=== PATIENT | male | born 1995 | race Caucasian/White ===

== ENCOUNTER 2017-05-25 18:41 | Emergency (ER) | payer OTHER ==
[2017-05-25] MEDS ORDERED: diPHENhydraMINE PO* 25 MG PO ONE (19:15)
[2017-05-25 20:26] VITALS: BP 128/50
--- NOTE | 2017-05-25 20:30 | ED ---
Joy Desir Thomas, scribed for Isidro Donohue MD on 05/25/17 at 1953 . Allergic Reaction/Systemic - HPI Summary HPI Summary: The patient is a 22 y/o M BIBA with concerns that he was suffering an allergic reaction s/p accidentally eating food with peanut oil today at 18:00. He has a small amount of hives to his bilateral hands. He denies any SOB, hoarseness, throat tightening, difficulty breathing, wheezing, and any pain. After the sting , he did not take either Benadryl or EpiPen. He was not given either by EMS. He has not consumed peanuts since he was 4 years old and thus he was concerned that he would go into anaphylaxis. In the examination room, he speculates that he may have overreacted. - History of Current Complaint Chief Complaint: EDAllergicReaction Time Seen by Provider: 05/25/17 18:56 Hx Obtained From: Patient Onset/Duration: Sudden Onset - peanut oil injection at 18:00, Still Present Timing: Constant Severity Currently: Mild Pain Intensity: 0 Pain Scale Used: 0-10 Numeric Aggravating Factor(s): Nothing Alleviating Factor(s): Nothing Associated Signs And Symptoms: Negative: Difficulty Breathing, Hoarseness, Throat Tightening, Other: - NEG: SOB - Related Hx Possible Reaction To: Food - peanut allergy ingestion - Allergies/Home Medications Allergies/Adverse Reactions: Allergies Allergy/AdvReac Type Severity Reaction Status Date / Time Peanut-containing Drug Allergy Unknown Verified 05/25/17 18:51 Products Reaction Details Tree Nuts Allergy Unknown Verified 05/25/17 18:51 Reaction Details PMH/Surg Hx/FS Hx/Imm Hx Previously Healthy: No Endocrine/Hematology History: Reports: Other Endocrine/Hematological Disorders - Peanut allergy Cardiovascular History: Denies: Hx Myocardial Infarction Respiratory History: Denies: Hx Chronic Obstructive Pulmonary Disease (COPD) - Surgical History Surgery Procedure, Year, and Place: None Infectious Disease History: No Infectious Disease History: Denies: Traveled Outside the [place] in Last 30 Days - Family History Known Family History: Negative: Other - NEG: peanut allergy - Social History Alcohol Use: Weekly Substance Use Type: Reports: None Smoking Status (MU): Never Smoked Tobacco Review of Systems Negative: Fever Negative: Other - NEG: hoarseess, throat tightening Negative: Shortness Of Breath, Other - NEG: diffulty breathing, wheezing Negative: Other - NEG: any pain Positive: Other - POS: small amount of hives to bilateral arms All Other Systems Reviewed And Are Negative: Yes Physical Exam Triage Information Reviewed: Yes Vital Signs On Initial Exam: Initial Vitals Temp Pulse Resp BP Pulse Ox 97.3 F 96 16 141/67 96 05/25/17 18:42 05/25/17 18:42 05/25/17 18:42 05/25/17 18:42 05/25/17 18:42 Vital Signs Reviewed: Yes Appearance: Positive: Well-Appearing, No Pain Distress, Well-Nourished Skin: Positive: Warm, Skin Color Reflects Adequate Perfusion, Dry Head/Face: Positive: Normal Head/Face Inspection Eyes: Positive: Normal ENT: Positive: Normal ENT inspection Neck: Positive: Supple, Nontender Respiratory/Lung Sounds: Positive: Clear to Auscultation, Breath Sounds Present Cardiovascular: Positive: RRR Abdomen Description: Positive: Nontender, Soft Bowel Sounds: Positive: Present Musculoskeletal: Positive: Normal Neurological: Positive: Normal Psychiatric: Positive: Normal, Affect/Mood Appropriate Diagnostics - Vital Signs Vital Signs Temp Pulse Resp BP Pulse Ox 05/25/17 19:00 83 97 05/25/17 18:49 91 96 05/25/17 18:46 141/67 05/25/17 18:42 97.3 F 96 16 141/67 96 - Laboratory Lab Statement: Any lab studies that have been ordered have been reviewed, and results considered in the medical decision making process. Allergic Reaction Course/Dx - Course Course Of Treatment: Mr. Yung presented with a mild allergic reaction involving his hands only. He improved with PO benadryl and he has an epipen at home. - Diagnoses Provider Diagnoses: Allergic reaction Discharge - Discharge Plan Condition: Stable Disposition: HOME Patient Education Materials: Food Allergy (ED), General Allergic Reaction (ED) Referrals: Non Staff,Doctor [Primary Care Provider] - Additional Instructions: Continue to keep your EpiPen in case of future accidental ingestions. The documentation as recorded by the Joy rosas Thomas accurately reflects the service I personally performed and the decisions made by , Isidro Donohue MD.
== END 2017-05-25 20:28 | disposition home or self-care (01) ==
LOC: ED 18:41
DX: T78.40XA Allergy, unspecified, initial encounter (principal); X58.XXXA Exposure to other specified factors, initial encounter
CPT/HCPCS: 99282; A9270-GY

== ENCOUNTER 2018-01-13 20:23 | Emergency (ER) | payer OTHER ==
--- NOTE | 2018-01-13 20:54 | RAD ---
HISTORY: Head injury, intoxication COMPARISONS: None TECHNIQUE: Multiple contiguous axial CT scans were obtained of the head without intravenous contrast. FINDINGS: HEMORRHAGE/INFARCT: There is no hemorrhage or acute infarct. MASSES/SHIFT: There is no mass or shift. EXTRA-AXIAL SPACES: There are no extra-axial fluid collections. SULCI AND VENTRICLES: The sulci and ventricles are normal in size and position for the patient's stated age. CEREBRUM: There are no focal parenchymal abnormalities. BRAINSTEM: There are no focal parenchymal abnormalities. CEREBELLUM: There are no focal parenchymal abnormalities. VESSELS: The vessels are grossly normal. PARANASAL SINUSES: The paranasal sinuses are clear. ORBITS: The orbits are unremarkable. BONES AND SOFT TISSUE: There is a left parieto-occipital scalp hematoma. There is no depressed or displaced skull fracture. OTHER: None IMPRESSION: NO ACUTE INTRACRANIAL PATHOLOGY.
[2018-01-13] MEDS ORDERED: Lidocaine 2% EPI 1:200000 MPF*10-20 ML VIAL INJ ONE (21:24)
--- NOTE | 2018-01-13 21:28 | ED ---
Head Injury - HPI Summary HPI Summary: 22-year-old male presents with head injury today. He unsure if loss conscious. He denies any nausea vomiting. He was looking up the stairs and slipped and struck his head on the banister. He does not recall the event well. He denies any dizziness. He denies any change in vision. Denies any photophobia. He denies any neck pain. He denies any other injury. His laceration to the skull. Area continues to bleed. He is not on blood thinners. He is no medical conditions. He denies any foreign body in the wound. His immunizations are up-to-date. - History Of Current Complaint Chief Complaint: EDHeadInjury Stated Complaint: FALL Time Seen by Provider: 01/13/18 20:27 Pain Intensity: 2 - Allergies/Home Medications Allergies/Adverse Reactions: Allergies Allergy/AdvReac Type Severity Reaction Status Date / Time peanut Allergy Anaphylatic Verified 01/13/18 21:19 Shock Tree Nuts Allergy Unknown Verified 01/13/18 21:19 Reaction Details seasame Allergy Unknown Uncoded 01/13/18 21:19 Reaction Details Home Medications: Home Medications ALPRAZolam TAB* [Xanax TAB*] 0.5 - 2 mg PO Q8H PRN 01/13/18 [History Confirmed 01/13/18] Amphetamine MIXED SALT TAB* [Adderall TAB*] 10 mg PO DAILY 01/13/18 [History Confirmed 01/13/18] Lisdexamfetamine Dimesylate [Vyvanse] 60 mg PO DAILY 01/13/18 [History Confirmed 01/13/18] buPROPion TAB* [Wellbutrin TAB*] 300 mg PO DAILY 01/13/18 [History Confirmed 12/28] PMH/Surg Hx/FS Hx/Imm Hx Endocrine/Hematology History: Reports: Other Endocrine/Hematological Disorders - Peanut allergy Cardiovascular History: Denies: Hx Myocardial Infarction Respiratory History: Denies: Hx Chronic Obstructive Pulmonary Disease (COPD) - Surgical History Surgery Procedure, Year, and Place: None Infectious Disease History: No Infectious Disease History: Denies: Traveled Outside the [place] in Last 30 Days - Family History Known Family History: Negative: Other - NEG: peanut allergy - Social History Alcohol Use: Weekly Substance Use Type: Reports: None Smoking Status (MU): Never Smoked Tobacco Review of Systems Negative: Fever Negative: Chest Pain Negative: Shortness Of Breath Positive: Other - scalp laceration Positive: Headache All Other Systems Reviewed And Are Negative: Yes Physical Exam Triage Information Reviewed: Yes Vital Signs On Initial Exam: Initial Vitals Temp Pulse Resp BP Pulse Ox 97.9 F 113 16 118/73 99 01/13/18 20:24 01/13/18 20:24 01/13/18 20:24 01/13/18 20:24 01/13/18 20:24 Vital Signs Reviewed: Yes Appearance: Positive: Well-Appearing Skin: Positive: Warm, Dry, Other - 5 cm by half centimeter laceration semicircular to posterior scalp Head/Face: Positive: Normal Head/Face Inspection, Other - no step off, raccoon eyes, resendez sign Eyes: Positive: Normal, EOMI, WILLOW, Conjunctiva Clear ENT: Positive: Normal ENT inspection, Pharynx normal, TMs normal Neck: Positive: Other: - Nontender neck, full range of motion neck Respiratory/Lung Sounds: Positive: Clear to Auscultation, Breath Sounds Present Cardiovascular: Positive: Normal, RRR Abdomen Description: Positive: Nontender, Soft Bowel Sounds: Positive: Present Musculoskeletal: Positive: Normal Neurological: Positive: Normal Psychiatric: Positive: Normal Procedures - Laceration/Wound Repair 1 Location: head Description: Irregular Anesthesia: Local, 1.0%, Epi Length, Depth and Shape: 5cm by 1/2cm laceration Irrigated w/ Saline (ccs): 300 Closure: Cornelia #__ - 5 Diagnostics - Vital Signs Vital Signs Temp Pulse Resp BP Pulse Ox 01/13/18 20:24 97.9 F 113 16 118/73 99 - Laboratory Lab Statement: Any lab studies that have been ordered have been reviewed, and results considered in the medical decision making process. Head Injury Course/Dx Course Of Treatment: 22-year-old male presents with head injury today. He unsure if loss conscious. He denies any nausea vomiting. He was looking up the stairs and slipped and struck his head on the banister. He does not recall the event well. He denies any dizziness. He denies any change in vision. Denies any photophobia. He denies any neck pain. He denies any other injury. His laceration to the skull. Area continues to bleed. He is not on blood thinners. He is no medical conditions. He denies any foreign body in the wound. His immunizations are up-to-date. On exam has normal neuro exam. Nontender neck. Has 5 cm by 1/2cm semicircular laceration to posterior scalp. With potential loss conscious and alcohol will get a CT. CT brain normal. Clean area and placed 5 cornelia. Told to have cornelia out in 7-10 days. told to follow up with primary about head injury. patient requesting valtrex for HSV. Patient understands this plan. - Diagnoses Differential Diagnosis/HQI/PQRI: Contusion, Intracranial Bleed, Laceration Provider Diagnoses: Head injury, Scalp laceration Discharge - Sign-Out/Discharge Documenting (check all that apply): Discharge/Admit/Transfer - Discharge Plan Condition: Good Disposition: HOME Prescriptions: ValACYclovir (*) [Valtrex 1 GM(*)] 2 gm PO BID #4 tab Patient Education Materials: Staple Care (ED) Referrals: Non Staff,Doctor [Primary Care Provider] - Additional Instructions: Place ice on area as needed Take Tylenol or headache for headache every 6 hours Do not scrub staple area Return to ED, urgent care or primary in 7-10 days to have cornelia removed Modify activities as tolerated Follow up with primary within 5 days Return to ED if develop any new or worsening symptoms - Billing Disposition and Condition Condition: GOOD Disposition: HOME
[2018-01-13 22:16] VITALS: BP 105/74
== END 2018-01-13 22:15 | disposition home or self-care (01) ==
LOC: ED 20:23
DX: S09.90XA Unspecified injury of head, initial encounter (principal); S01.01XA Laceration without foreign body of scalp, initial encounter; W01.0XXA Fall on same level from slipping, tripping and stumbling without subsequent striking against object, initial encounter; Y92.9 Unspecified place or not applicable
CPT/HCPCS: 12002; 70450; 99282

== ENCOUNTER 2018-01-22 07:54 | Emergency (ER) | payer OTHER ==
[2018-01-22] MEDS ORDERED: Neosporin TOPICAL OINT* 1 EA PACKET TOPICAL ONE (09:14)
[2018-01-22 09:30] VITALS: BP 140/79
--- NOTE | 2018-01-22 09:32 | ED ---
Laceration/Wound HPI - HPI Summary HPI Summary: Patient is a 22-year-old male who presents emergency department for staple removal. Patient was seen in the ER 9 days ago after he fell and sustained a laceration to back of his head. Symptoms are mild in severity. Patient's only complaint today is some intermittent tinnitus. No current modifying factors. - History of Current Complaint Stated Complaint: STAPLE REMOVAL Time Seen by Provider: 01/22/18 08:30 Hx Obtained From: Patient Pain Intensity: 6 Pain Scale Used: 0-10 Numeric - Allergy/Home Medications Allergies/Adverse Reactions: Allergies Allergy/AdvReac Type Severity Reaction Status Date / Time peanut Allergy Anaphylatic Verified 01/22/18 08:04 Shock Tree Nuts Allergy Unknown Verified 01/22/18 08:04 Reaction Details seasame Allergy Unknown Uncoded 01/22/18 08:04 Reaction Details Home Medications: Home Medications ValACYclovir (*) [Valtrex 1 GM(*)] 2 gm PO BID PRN 01/22/18 [History Confirmed 01/22/18] PMH/Surg Hx/FS Hx/Imm Hx Endocrine/Hematology History: Reports: Other Endocrine/Hematological Disorders - Peanut allergy Cardiovascular History: Denies: Hx Myocardial Infarction Respiratory History: Denies: Hx Chronic Obstructive Pulmonary Disease (COPD) - Surgical History Surgery Procedure, Year, and Place: None Infectious Disease History: No Infectious Disease History: Denies: Traveled Outside the [place] in Last 30 Days - Family History Known Family History: Negative: Other - NEG: peanut allergy - Social History Alcohol Use: Weekly Substance Use Type: Reports: None Smoking Status (MU): Never Smoked Tobacco Review of Systems Constitutional: Negative Positive: Other - Tinnitus Positive: Other Positive: Other - Laceration to posterior scalp Negative: Headache, Weakness, Paresthesia, Numbness All Other Systems Reviewed And Are Negative: Yes Physical Exam Triage Information Reviewed: Yes Vital Signs On Initial Exam: Initial Vitals Temp Pulse Resp BP Pulse Ox 98.1 F 72 16 136/81 100 01/22/18 08:05 01/22/18 08:05 01/22/18 08:05 01/22/18 08:05 01/22/18 08:05 Vital Signs Reviewed: Yes Appearance: Positive: Well-Appearing - Patient sitting on bed in no acute distress. Skin: Positive: Warm, Dry Head/Face: Positive: Scalp - Healing wound noted to the left posterior scalp. Wound appears well approximated. No erythema or purulent discharge. Mild hematoma still noted. Eyes: Positive: Normal Neck: Positive: Supple Musculoskeletal: Positive: Other - 1 cm linear laceration noted to the palmar aspect of the distal third digit of the right hand. Tendons are intact. Bony tenderness. Neurological: Positive: Normal, CN Intact II-III Psychiatric: Positive: Normal Procedures - Procedure Summary Procedure Summary: 5 cornelia removed from the posterior scalp wound. There is a small area on the left side of wound that is mildly opened. There is no surrounding erythema or edema. No signs of infection. Diagnostics - Vital Signs Vital Signs Temp Pulse Resp BP Pulse Ox 01/22/18 09:29 98.2 F 72 17 140/79 99 01/22/18 08:05 98.1 F 72 16 136/81 100 - Laboratory Lab Statement: Any lab studies that have been ordered have been reviewed, and results considered in the medical decision making process. Laceration Repair Course/Dx - Course Course Of Treatment: Pt. presenting for staple removal and 5 cornelia were removed. No signs of infection on exam. There is a small open area to the left side of the wound, wound is otherwise well approximated. Wound was cleaned and dressed and bandaged. Advised patient to keep wound clean and dry. To follow-up with PCP. Return to ER symptoms change or worsen. - Differential Dx Differental Diagnoses: Cellulitis, Healing Wound, Laceration, Suture Removal - Clinical Impression Provider Diagnoses: Removal of cornelia Discharge - Sign-Out/Discharge Documenting (check all that apply): Discharge/Admit/Transfer - Discharge Plan Condition: Good Disposition: HOME Patient Education Materials: Acute Wound Care (ED) Referrals: Non Staff,Doctor [Medical Doctor] - Additional Instructions: Keep wound clean and dry Return to ER for redness, swelling or drainage from wound - Billing Disposition and Condition Condition: GOOD Disposition: HOME
== END 2018-01-22 09:29 | disposition home or self-care (01) ==
LOC: ED 07:54
DX: S01.01XD Laceration without foreign body of scalp, subsequent encounter (principal); X58.XXXD Exposure to other specified factors, subsequent encounter
CPT/HCPCS: 99282; A9270-GY

== ENCOUNTER 2018-12-22 16:22 | Emergency (ER) | payer OTHER ==
--- NOTE | 2018-12-22 18:46 | ED ---
Laceration/Wound HPI - HPI Summary HPI Summary: 23-year-old male presents with laceration to right palm. He states that a beaker that he just autoclaved cut his right palm. Denies any foreign body. The area is not actively bleeding. He states been having some tingling in all his fingers. Laceration is superficial. Tetanus up-to-date. Has no medical conditions. - History of Current Complaint Stated Complaint: "PALM LAC" PER PT Time Seen by Provider: 12/22/18 17:47 Pain Intensity: 6 - Allergy/Home Medications Allergies/Adverse Reactions: Allergies Allergy/AdvReac Type Severity Reaction Status Date / Time peanut Allergy Anaphylatic Verified 12/22/18 16:31 Shock Tree Nuts Allergy Unknown Verified 12/22/18 16:31 Reaction Details seasame Allergy Unknown Uncoded 12/22/18 16:31 Reaction Details PMH/Surg Hx/FS Hx/Imm Hx Endocrine/Hematology History: Reports: Other Endocrine/Hematological Disorders - Peanut allergy Cardiovascular History: Denies: Hx Myocardial Infarction Respiratory History: Denies: Hx Chronic Obstructive Pulmonary Disease (COPD) - Surgical History Surgery Procedure, Year, and Place: None Infectious Disease History: No Infectious Disease History: Reports: Traveled Outside the [place] in Last 30 Days - witter - Family History Known Family History: Negative: Other - NEG: peanut allergy - Social History Alcohol Use: Weekly Substance Use Type: Reports: None Smoking Status (MU): Never Smoked Tobacco Review of Systems Negative: Fever Negative: Chest Pain Negative: Shortness Of Breath Positive: Other - laceration right palm All Other Systems Reviewed And Are Negative: Yes Physical Exam Triage Information Reviewed: Yes Vital Signs On Initial Exam: Initial Vitals Temp Pulse Resp BP Pulse Ox 98 F 93 14 146/76 97 12/22/18 16:32 12/22/18 16:32 12/22/18 16:32 12/22/18 16:32 12/22/18 16:32 Vital Signs Reviewed: Yes Appearance: Positive: Well-Appearing Skin: Positive: Warm, Dry, Other - 2cm superficial laceration to right palm Head/Face: Positive: Normal Head/Face Inspection Eyes: Positive: Normal, Conjunctiva Clear ENT: Positive: Pharynx normal Respiratory/Lung Sounds: Positive: Clear to Auscultation, Breath Sounds Present Cardiovascular: Positive: Normal, RRR Musculoskeletal: Positive: Strength/ROM Intact - right palm, Other - sensation grossly intact, capillary refill<2secs Neurological: Positive: Normal Psychiatric: Positive: Normal Procedures - Laceration/Wound Repair 1 Location: Other - right palm Description: Linear Length, Depth and Shape: 2cm superficial Irrigated w/ Saline (ccs): 200 Closure: Skin Adhesive, SteriStrips Diagnostics - Vital Signs Vital Signs Temp Pulse Resp BP Pulse Ox 12/22/18 16:32 98 F 93 14 146/76 97 - Laboratory Lab Statement: Any lab studies that have been ordered have been reviewed, and results considered in the medical decision making process. Laceration Repair Course/Dx - Course Course Of Treatment: 23-year-old male presents with laceration to right palm. He states that a beaker that he just autoclaved cut his right palm. Denies any foreign body. The area is not actively bleeding. He states been having some tingling in all his fingers. Laceration is superficial. Tetanus up-to-date. Has no medical conditions. On exam has 2 cm superficial laceration to right palm. Neurovascularly intact. Laceration does not appear to go through the subcutaneous so unlikely that has any nerve damage. Clean area and place glue. Told if numbness continues to follow up with orthopedic. Patient understands and agrees with plan. - Differential Dx Differental Diagnoses: Abrasion, Avulsion, Laceration - Clinical Impression Provider Diagnoses: Laceration of palm Discharge - Sign-Out/Discharge Documenting (check all that apply): Patient Departure Patient Received Moderate/Deep Sedation with Procedure: No - Discharge Plan Condition: Good Disposition: HOME Patient Education Materials: Skin Adhesive Care (ED) Referrals: [facility] - Adithya WOOD [Primary Care Provider] - Darlene Young MD [Medical Doctor] - Additional Instructions: Place ice on area Take Tylenol or ibuprofen for pain as needed every 6 hours Keep dry for 24 hours Glue will fall off on own Avoid scrubbing area follow up with ortho if no improvement Return to ED if develop any signs of infection or any new or worsening symptoms - Billing Disposition and Condition Condition: GOOD Disposition: Home
[2018-12-22 18:53] VITALS: BP 132/77
== END 2018-12-22 18:52 | disposition home or self-care (01) ==
LOC: ED 16:22
DX: S61.411A Laceration without foreign body of right hand, initial encounter (principal); W25.XXXA Contact with sharp glass, initial encounter; Y92.89 Other specified places as the place of occurrence of the external cause
CPT/HCPCS: 12001; 99281